=== PATIENT | female | born 1950 | race Caucasian/White ===

== ENCOUNTER → 2017-02-19 | Outpatient (CLI) | payer BC | LOC: MC.RAD 11:00 | DX: Z12.31 Encounter for screening mammogram for malignant neoplasm of breast (principal) ==

== ENCOUNTER 2021-03-11 17:17 | Emergency (ER) | payer MEDICARE ==
[~2021-03-11] VITALS: Ht 165.1 cm; Wt 81.8 kg
[2021-03-11 17:29] VITALS: TEMP 97.4
[2021-03-11 17:46] LABS: BASO # 0.1 K/mm3 (0.0-0.2); BASO % 0.5 % (0.0-2.0); EOS % 0.1 % (0.0-4.0); GRAN # 11.7 K/mm3 (1.4-6.5); GRAN % 77.9 % (42.2-75.2); HEMATOCRIT 37.1 % (37.0-47.0); HEMOGLOBIN 12.4 g/dl (12.5-16.0); LYMPH # 2.3 K/mm3 (1.2-3.4); LYMPH % 15.6 % (20.0-51.0); MEAN CELL VOLUME 88 fl (80.0-100.0); MEAN CORPUSCULAR HEMOGLOBIN 29 pg (27-31); MEAN CORPUSCULAR HGB CONC 33 g/dl (33.0-37.0); MEAN PLATELET VOLUME 10.4 fl (7.4-10.4); MONO # 0.8 K/mm3 (0.1-0.6); MONO % 5.4 % (1.7-9.3); PLATELET COUNT 289 K/mm3 (130-400); RED BLOOD COUNT 4.24 M/mm3 (4.10-5.30); REDCELL DISTRIBUTION WIDTH-CV 13.1 % (11.5-14.5)
[2021-03-11 17:52] LABS: INR 1.1 (0.8-3.0)
[2021-03-11 18:01] LABS: ALANINE AMINOTRANSFERASE 11 U/L (0-55); ALBUMIN 4.4 gm/dL (3.4-4.8); ALCOHOL(ethanol),MEDICAL < 10 mg/dL (0-10); ALKALINE PHOSPHATASE 77 U/L (40-150); ANION GAP 14 mmol/L (7-16); AST,SGOT 20 U/L (5-34); BILIRUBIN,TOTAL 0.5 mg/dL (0.2-1.2); BLOOD UREA NITROGEN 20 mg/dL (10-20); CALCIUM 9.3 mg/dL (8.4-10.2); CARBON DIOXIDE 22 mmol/L (23-31); CHLORIDE 106 mmol/L (98-107); CREATININE, serum 0.85 mg/dL (0.57-1.11); GLUCOSE 127 mg/dL (70-99); POTASSIUM 3.7 mmol/L (3.5-4.5); SODIUM 142 mmol/L (136-145); TOTAL PROTEIN 7.7 gm/dL (6.2-8.1)
[2021-03-11 18:10] LABS: TROPONIN-I < 0.010 ng/mL (0.00-0.033)
[2021-03-11 18:11] LABS: COLLECTION METHOD IN
[2021-03-11 18:21] LABS: MUCOUS Present (NOT PRESENT); PH 9 (5-8); SQUAMOUS EPITHELIAL 0-2 /hpf (0-10); URINE APPEARANCE Hazy (CLEAR/HAZY); URINE BACTERIA Rare /hpf (NONE SEEN); URINE BILIRUBIN Negative (NEGATIVE); URINE BLOOD Negative (NEGATIVE); URINE COLOR Yellow (YELLOW); URINE GLUCOSE Negative (NEGATIVE); URINE KETONE 1+ (NEGATIVE); URINE LEUKOCYTE ESTERASE Negative (NEGATIVE); URINE NITRATE Negative (NEGATIVE); URINE PROTEIN(semi-quant) 1+ (NEGATIVE); URINE UROBILINOGEN Negative (NEGATIVE)
[2021-03-11 18:26] LABS: TRICYCLIC ANTIDEPRESS URINE NEGATIVE
[2021-03-11 19:09] VITALS: BP 133/73; PULSE 64
== END 2021-03-11 19:09 | disposition short-term general hospital (02) ==
LOC: COL.ER
PROVIDERS: Emergency Medicine
DX: S06.5X0A Traumatic subdural hemorrhage without loss of consciousness, initial encounter (principal); W19.XXXA Unspecified fall, initial encounter; W22.8XXA Striking against or struck by other objects, initial encounter
CPT/HCPCS: J1953; J2405

== ENCOUNTER 2021-03-23 21:07 | Emergency (ER) | payer MEDICARE ==
[~2021-03-23] VITALS: Ht 165.1 cm; Wt 68.2 kg
[2021-03-23 22:26] LABS: BASO % 0.3 % (0.0-2.0); EOS # 0.1 K/mm3 (0.0-0.7); EOS % 0.7 % (0.0-4.0); GRAN % 67.4 % (42.2-75.2); HEMATOCRIT 33.2 % (37.0-47.0); HEMOGLOBIN 10.8 g/dl (12.5-16.0); LYMPH # 3.1 K/mm3 (1.2-3.4); LYMPH % 22.9 % (20.0-51.0); MEAN CELL VOLUME 89 fl (80.0-100.0); MEAN CORPUSCULAR HEMOGLOBIN 29 pg (27-31); MEAN CORPUSCULAR HGB CONC 33 g/dl (33.0-37.0); MEAN PLATELET VOLUME 9.3 fl (7.4-10.4); MONO % 7.3 % (1.7-9.3); PLATELET COUNT 519 K/mm3 (130-400); RED BLOOD COUNT 3.72 M/mm3 (4.10-5.30); REDCELL DISTRIBUTION WIDTH-CV 13.8 % (11.5-14.5)
[2021-03-23 22:35] LABS: INR 1.1 (0.8-3.0); PROTHROMBIN TIME 11.7 SECONDS (9.7-12.8)
[2021-03-23 22:38] LABS: PARTIAL THROMBOPLASTIN TIME 26.5 SECONDS (26.0-37.0)
[2021-03-23 22:43] LABS: ALBUMIN 3.9 gm/dL (3.4-4.8); BILIRUBIN,TOTAL 0.3 mg/dL (0.2-1.2); CREATININE, serum 0.83 mg/dL (0.57-1.11); POTASSIUM 3.8 mmol/L (3.5-4.5); TOTAL PROTEIN 7.1 gm/dL (6.2-8.1)
[2021-03-24 00:51] VITALS: BP 123/81; PULSE 71; TEMP 97.4
== END 2021-03-24 00:51 | disposition home or self-care (01) ==
LOC: COL.ER 21:07
PROVIDERS: Student in an Organized Health Care Education/Training Program
DX: K92.2 Gastrointestinal hemorrhage, unspecified (principal); G30.9 Alzheimer's disease, unspecified

== ENCOUNTER 2021-08-15 23:30 | Emergency (ER) | payer MEDICARE ==
[2021-08-15 23:39] VITALS: TEMP 98.1
[2021-08-16 00:04] LABS: INR 0.9 (0.8-3.0); PROTHROMBIN TIME 10.3 SECONDS (9.7-12.8)
[2021-08-16 00:07] LABS: PARTIAL THROMBOPLASTIN TIME 32.3 SECONDS (26.0-37.0)
[2021-08-16 00:13] LABS: ALANINE AMINOTRANSFERASE 21 U/L (0-55); ALCOHOL(ethanol),MEDICAL < 10 mg/dL (0-10); ALKALINE PHOSPHATASE 102 U/L (40-150); ANION GAP 14 mmol/L (7-16); AST,SGOT 22 U/L (5-34); BASO # 0.1 K/mm3 (0.0-0.2); BASO % 0.6 % (0.0-2.0); BILIRUBIN,TOTAL 0.4 mg/dL (0.2-1.2); BLOOD UREA NITROGEN 14 mg/dL (10-20); CALCIUM 9.3 mg/dL (8.4-10.2); CARBON DIOXIDE 25 mmol/L (23-31); CHLORIDE 102 mmol/L (98-107); CREATININE, serum 0.78 mg/dL (0.57-1.11); EOS # 0.1 K/mm3 (0.0-0.7); EOS % 0.7 % (0.0-4.0); GLUCOSE 106 mg/dL (70-99); GRAN % 70.9 % (42.2-75.2); HEMATOCRIT 38.8 % (37.0-47.0); HEMOGLOBIN 12.4 g/dl (12.5-16.0); LYMPH # 2.1 K/mm3 (1.2-3.4); LYMPH % 21.3 % (20.0-51.0); MEAN CELL VOLUME 86 fl (80.0-100.0); MEAN CORPUSCULAR HEMOGLOBIN 28 pg (27-31); MEAN CORPUSCULAR HGB CONC 32 g/dl (33.0-37.0); MEAN PLATELET VOLUME 9.4 fl (7.4-10.4); MONO # 0.6 K/mm3 (0.1-0.6); MONO % 6.1 % (1.7-9.3); PLATELET COUNT 295 K/mm3 (130-400); POTASSIUM 3.8 mmol/L (3.5-4.5); REDCELL DISTRIBUTION WIDTH-CV 14.2 % (11.5-14.5); SODIUM 141 mmol/L (136-145); TOTAL PROTEIN 7.7 gm/dL (6.2-8.1)
[2021-08-16 00:20] LABS: TROPONIN-I < 0.010 ng/mL (0.00-0.033)
[2021-08-16 01:16] LABS: AMORPHOUS CRYSTAL Present (NOT PRESENT); MUCOUS Present (NOT PRESENT); PH 7 (5-8); SQUAMOUS EPITHELIAL None Seen /hpf (0-10); URINE APPEARANCE Hazy (CLEAR/HAZY); URINE BACTERIA Rare /hpf (NONE SEEN); URINE BILIRUBIN Negative (NEGATIVE); URINE BLOOD 2+ (NEGATIVE); URINE COLOR Yellow (YELLOW); URINE GLUCOSE Negative (NEGATIVE); URINE KETONE Negative (NEGATIVE); URINE LEUKOCYTE ESTERASE 1+ (NEGATIVE); URINE NITRATE Negative (NEGATIVE); URINE PROTEIN(semi-quant) Negative (NEGATIVE); URINE UROBILINOGEN Negative (NEGATIVE)
[2021-08-16 01:50] VITALS: BP 113/83; PULSE 74
[2021-08-17 11:16] LABS: COLLECTION METHOD CLEAN CATCH
== END 2021-08-16 01:50 | disposition home or self-care (01) ==
LOC: COL.ER 23:30
PROVIDERS: Emergency Medicine
DX: R51.9 Headache, unspecified (principal)
CPT/HCPCS: J7030

== ENCOUNTER 2021-08-16 10:27 | Emergency (ER) | payer MEDICARE ==
[2021-08-16 10:29] VITALS: TEMP 98
[2021-08-16 10:57] LABS: BASO # 0.1 K/mm3 (0.0-0.2); BASO % 0.7 % (0.0-2.0); EOS # 0.1 K/mm3 (0.0-0.7); EOS % 0.9 % (0.0-4.0); GRAN # 3.7 K/mm3 (1.4-6.5); GRAN % 55.4 % (42.2-75.2); HEMATOCRIT 38.5 % (37.0-47.0); HEMOGLOBIN 12.3 g/dl (12.5-16.0); LYMPH # 2.4 K/mm3 (1.2-3.4); LYMPH % 35.1 % (20.0-51.0); MEAN CELL VOLUME 85 fl (80.0-100.0); MEAN CORPUSCULAR HEMOGLOBIN 27 pg (27-31); MEAN CORPUSCULAR HGB CONC 32 g/dl (33.0-37.0); MEAN PLATELET VOLUME 9.2 fl (7.4-10.4); MONO # 0.5 K/mm3 (0.1-0.6); MONO % 7.6 % (1.7-9.3); PLATELET COUNT 319 K/mm3 (130-400); RED BLOOD COUNT 4.51 M/mm3 (4.10-5.30); REDCELL DISTRIBUTION WIDTH-CV 14.4 % (11.5-14.5)
[2021-08-16 11:05] LABS: PROTHROMBIN TIME 11.1 SECONDS (9.7-12.8)
[2021-08-16 11:08] LABS: PARTIAL THROMBOPLASTIN TIME 31.2 SECONDS (26.0-37.0)
[2021-08-16 11:16] LABS: ALANINE AMINOTRANSFERASE 19 U/L (0-55); ALBUMIN 3.8 gm/dL (3.4-4.8); ALKALINE PHOSPHATASE 89 U/L (40-150); ANION GAP 9 mmol/L (7-16); AST,SGOT 21 U/L (5-34); BILIRUBIN,TOTAL 0.4 mg/dL (0.2-1.2); BLOOD UREA NITROGEN 12 mg/dL (10-20); CALCIUM 9.1 mg/dL (8.4-10.2); CARBON DIOXIDE 27 mmol/L (23-31); CHLORIDE 106 mmol/L (98-107); GLUCOSE 90 mg/dL (70-99); POTASSIUM 4.1 mmol/L (3.5-4.5); SODIUM 142 mmol/L (136-145); TOTAL PROTEIN 7.4 gm/dL (6.2-8.1)
[2021-08-16 11:24] LABS: TROPONIN-I < 0.010 ng/mL (0.00-0.033)
[2021-08-16 12:00] LABS: COLLECTION METHOD CLEAN CATCH
[2021-08-16 12:09] LABS: PH 8 (5-8); SQUAMOUS EPITHELIAL 0-2 /hpf (0-10); URINE APPEARANCE Clear (CLEAR/HAZY); URINE BACTERIA None Seen /hpf (NONE SEEN); URINE BILIRUBIN Negative (NEGATIVE); URINE BLOOD Negative (NEGATIVE); URINE COLOR Yellow (YELLOW); URINE GLUCOSE Negative (NEGATIVE); URINE KETONE Negative (NEGATIVE); URINE LEUKOCYTE ESTERASE Negative (NEGATIVE); URINE NITRATE Negative (NEGATIVE); URINE PROTEIN(semi-quant) Negative (NEGATIVE); URINE RBC 0-2 /hpf (0-2); URINE UROBILINOGEN Negative (NEGATIVE)
[2021-08-16 13:23] VITALS: BP 134/93; PULSE 81
== END 2021-08-16 13:31 | disposition home or self-care (01) ==
LOC: COL.ER 10:27
PROVIDERS: Emergency Medicine; Nurse Practitioner
DX: F03.90 Unspecified dementia, unspecified severity, without behavioral disturbance, psychotic disturbance, mood disturbance, and anxiety (principal)
CPT/HCPCS: J7030

== ENCOUNTER 2021-09-10 13:09 | Emergency (ER) | payer MEDICARE ==
[~2021-09-10] VITALS: Ht 165.1 cm; Wt 72.7 kg
[2021-09-10 13:58] LABS: BASO # 0.1 K/mm3 (0.0-0.2); BASO % 0.7 % (0.0-2.0); EOS # 0.1 K/mm3 (0.0-0.7); EOS % 0.6 % (0.0-4.0); GRAN # 4.7 K/mm3 (1.4-6.5); GRAN % 57.9 % (42.2-75.2); HEMATOCRIT 42.8 % (37.0-47.0); HEMOGLOBIN 13.7 g/dl (12.5-16.0); LYMPH # 2.7 K/mm3 (1.2-3.4); LYMPH % 32.4 % (20.0-51.0); MEAN CELL VOLUME 88 fl (80.0-100.0); MEAN CORPUSCULAR HEMOGLOBIN 28 pg (27-31); MEAN CORPUSCULAR HGB CONC 32 g/dl (33.0-37.0); MEAN PLATELET VOLUME 9.3 fl (7.4-10.4); MONO # 0.7 K/mm3 (0.1-0.6); MONO % 8.2 % (1.7-9.3); PLATELET COUNT 341 K/mm3 (130-400); RED BLOOD COUNT 4.89 M/mm3 (4.10-5.30); REDCELL DISTRIBUTION WIDTH-CV 13.7 % (11.5-14.5)
[2021-09-10 14:19] LABS: ALBUMIN 4.1 gm/dL (3.4-4.8); BILIRUBIN,TOTAL 0.4 mg/dL (0.2-1.2); CALCIUM 10.1 mg/dL (8.4-10.2); CREATININE, serum 0.82 mg/dL (0.57-1.11); TOTAL PROTEIN 7.8 gm/dL (6.2-8.1)
[2021-09-10 14:38] LABS: COLLECTION METHOD CLEAN CATCH
[2021-09-10 15:09] LABS: PH 9 (5-8); SQUAMOUS EPITHELIAL None Seen /hpf (0-10); URINE APPEARANCE Clear (CLEAR/HAZY); URINE BACTERIA None Seen /hpf (NONE SEEN); URINE BLOOD Negative (NEGATIVE); URINE COLOR Straw (YELLOW); URINE GLUCOSE Negative (NEGATIVE); URINE KETONE Negative (NEGATIVE); URINE NITRATE Negative (NEGATIVE); URINE PROTEIN(semi-quant) Negative (NEGATIVE); URINE RBC 0-2 /hpf (0-2); URINE UROBILINOGEN Negative (NEGATIVE)
[2021-09-10 15:39] VITALS: BP 138/84; PULSE 76; TEMP 97.6
== END 2021-09-10 15:55 | disposition home or self-care (01) ==
LOC: COL.ER 13:09
PROVIDERS: Physician Assistant
DX: M54.50 Low back pain, unspecified (principal)
CPT/HCPCS: J2360; J7030

== ENCOUNTER → 2022-07-16 | Outpatient (CLI) | payer MEDICARE ==
[~2022-07-16] MED LIST: CALCIUM 600600 MG PO; CRESTOR20 MG PO; DEBROX OT; GENTLE LAXATIVE10 MG RC; IMODIUM A-D2 MG PO; KEPPRA 500MG500 MG PO; MILK OF MA400 MG/52 PO; MIRALAX PA17 GM/Dose PO; MYRBETR50MG PO; NAMENDA 10MG TA10 MG PO; PROTONIX20 MG PO; TYLENOL SU650 MG/SUP RC; VITAMIN D250 MCG PO; ZOLOFT 25MG25 MG PO
[2022-07-16 18:56] LABS: COLLECTION METHOD CATHETER
[2022-07-16 19:18] LABS: MUCOUS Present (NOT PRESENT); SQUAMOUS EPITHELIAL None Seen /hpf (0-10); URINE BACTERIA Rare /hpf (NONE SEEN); URINE RBC 0-2 /hpf (0-2)
[2022-07-16 19:21] LABS: PH 5.5 (5.0-8.5); URINE APPEARANCE Clear (CLEAR/HAZY); URINE BLOOD Negative (NEGATIVE); URINE COLOR Yellow (YELLOW); URINE GLUCOSE Negative (NEGATIVE); URINE KETONE TRACE (NEGATIVE); URINE NITRATE Negative (NEGATIVE); URINE PROTEIN(semi-quant) Negative (NEGATIVE); URINE UROBILINOGEN 0.2 E.U/dL (0.2-1.0)
== END ==
LOC: ZCOL.LAB 18:50
PROVIDERS: Internal Medicine
DX: R30.0 Dysuria (principal)

== ENCOUNTER 2022-11-28 09:54 | Emergency (ER) | payer MEDICARE ==
[2022-11-28 10:11] VITALS: TEMP 99.3
[2022-11-28 10:32] LABS: BASO # 0.1 K/mm3 (0.0-0.2); BASO % 0.9 % (0.0-2.0); EOS % 0.1 % (0.0-4.0); GRAN # 4.3 K/mm3 (1.4-6.5); GRAN % 63.8 % (42.2-75.2); HEMATOCRIT 43.6 % (37.0-47.0); HEMOGLOBIN 13.9 g/dl (12.5-16.0); LYMPH # 1.6 K/mm3 (1.2-3.4); LYMPH % 23.7 % (20.0-51.0); MEAN CELL VOLUME 91 fl (80.0-100.0); MEAN CORPUSCULAR HEMOGLOBIN 29 pg (27-31); MEAN CORPUSCULAR HGB CONC 32 g/dl (33.0-37.0); MEAN PLATELET VOLUME 9.8 fl (7.4-10.4); MONO # 0.8 K/mm3 (0.1-0.6); MONO % 11.2 % (1.7-9.3); PLATELET COUNT 258 K/mm3 (130-400); RED BLOOD COUNT 4.77 M/mm3 (4.10-5.30); REDCELL DISTRIBUTION WIDTH-CV 13.1 % (11.5-14.5)
[2022-11-28 10:39] LABS: COLLECTION METHOD CLEAN CATCH
[2022-11-28] MEDS ORDERED: ARICEPT10 MG PO (10:43)
[2022-11-28] MEDS ORDERED: ATIVAN 0.50.5 MG/TAB PO (10:45)
[2022-11-28] MEDS ORDERED: CELEXA10 MG PO (10:45)
[2022-11-28] MEDS ORDERED: SEROQUEL 2525 MG/TAB PO (10:47)
[2022-11-28] MEDS ORDERED: TYLENOL 500MG500 MG PO (10:49)
[2022-11-28 10:51] LABS: ALANINE AMINOTRANSFERASE 46 U/L (0-55); ALBUMIN 4.1 gm/dL (3.4-4.8); ALKALINE PHOSPHATASE 99 U/L (40-150); ANION GAP 12 mmol/L (7-16); AST,SGOT 24 U/L (5-34); BLOOD UREA NITROGEN 15 mg/dL (10-20); CALCIUM 9.6 mg/dL (8.4-10.2); CARBON DIOXIDE 21 mmol/L (23-31); CHLORIDE 106 mmol/L (98-107); CREATININE, serum 0.88 mg/dL (0.57-1.11); GLUCOSE 140 mg/dL (70-99); POTASSIUM 3.8 mmol/L (3.5-4.5); SODIUM 139 mmol/L (136-145); TOTAL PROTEIN 7.7 gm/dL (6.2-8.1)
[2022-11-28] MEDS ORDERED: REFRESH TEARS 330 ML OP (10:57)
[2022-11-28 10:58] LABS: TROPONIN-I < 0.010 ng/mL (0.00-0.033)
[2022-11-28] MEDS ORDERED: TYLENOL SU650 MG/SUP RC (10:58)
[2022-11-28 10:59] LABS: MUCOUS Present (NOT PRESENT); URINE APPEARANCE Clear (CLEAR/HAZY); URINE BLOOD TRACE-INTACT (NEGATIVE); URINE COLOR Yellow (YELLOW); URINE GLUCOSE Negative (NEGATIVE); URINE KETONE Negative (NEGATIVE); URINE NITRATE Negative (NEGATIVE); URINE PROTEIN(semi-quant) TRACE (NEGATIVE); URINE UROBILINOGEN 0.2 E.U/dL (0.2-1.0)
[2022-11-28 11:00] LABS: BILIRUBIN,TOTAL < 0.5 mg/dL (0.2-1.2)
[2022-11-28 12:04] VITALS: BP 109/85; PULSE 73
== END 2022-11-28 12:05 | disposition home or self-care (01) ==
LOC: COL.ER 09:54
PROVIDERS: Emergency Medicine
DX: U07.1 COVID-19 (principal); R53.1 Weakness; R53.83 Other fatigue; R05.9 Cough, unspecified; R50.9 Fever, unspecified; R73.9 Hyperglycemia, unspecified

== ENCOUNTER → 2022-12-07 | Outpatient (CLI) | payer MEDICARE ==
[~2022-12-07] MED LIST changes: +ARICEPT10 MG PO; +ATIVAN 0.50.5 MG/TAB PO; +CELEXA10 MG PO; +REFRESH TEARS 330 ML OP; +SEROQUEL 2525 MG/TAB PO; +TYLENOL 500MG500 MG PO
== END ==
LOC: ZCOL.LAB 15:52
DX: Z51.81 Encounter for therapeutic drug level monitoring (principal)

== ENCOUNTER → 2023-11-16 | Outpatient (REF) | payer MEDICARE ==
[2023-11-16 15:15] LABS: BASO % 0.7 % (0.0-2.0); EOS # 0.2 K/mm3 (0.0-0.7); EOS % 4.1 % (0.0-4.0); GRAN # 2.8 K/mm3 (1.4-6.5); GRAN % 47.4 % (42.2-75.2); HEMATOCRIT 40.1 % (37.0-47.0); HEMOGLOBIN 12.7 g/dl (12.5-16.0); LYMPH # 2.4 K/mm3 (1.2-3.4); LYMPH % 41.1 % (20.0-51.0); MEAN CELL VOLUME 92 fl (80.0-100.0); MEAN CORPUSCULAR HEMOGLOBIN 29 pg (27-31); MEAN CORPUSCULAR HGB CONC 32 g/dl (33.0-37.0); MEAN PLATELET VOLUME 10.3 fl (7.4-10.4); MONO # 0.4 K/mm3 (0.1-0.6); MONO % 6.5 % (1.7-9.3); PLATELET COUNT 273 K/mm3 (130-400); RED BLOOD COUNT 4.34 M/mm3 (4.10-5.30); REDCELL DISTRIBUTION WIDTH-CV 12.6 % (11.5-14.5)
[2023-11-16 15:37] LABS: ALBUMIN 3.6 g/dL (3.4-4.8); BILIRUBIN,TOTAL 0.4 mg/dL (0.2-1.2); CALCIUM 9.4 mg/dL (8.4-10.2); CREATININE, serum 0.74 mg/dL (0.57-1.11); POTASSIUM 5.1 mEq/L (3.5-4.5); TOTAL PROTEIN 6.6 g/dl (6.2-8.1)
[2023-11-16 16:13] LABS: THYROID STIMULATING HORMONE 1.161 uIU/mL (0.350-4.940)
== END ==
LOC: ZCOL.LAB 14:53
PROVIDERS: Internal Medicine
DX: I62.9 Nontraumatic intracranial hemorrhage, unspecified (principal)